=== PATIENT | male | born 2000 | race African-American/Black ===

== ENCOUNTER 2023-08-26 20:05 | Emergency (ER) | payer OTHER ==
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
[2023-08-26 20:36] VITALS: BP 148/82; O2SAT 97
[2023-08-26] MEDS: IBUPROFEN 800 MG TABLET PO STA (20:38)
--- NOTE | 2023-08-26 21:22 | XRAY Report ---
PROCEDURE: Wrist 3+V RT INDICATIONS: Wrist injury 4 views pls TECHNIQUE: 3 views of the wrist were acquired. COMPARISON: None. FINDINGS: Bones: No acute displaced fracture or dislocation. No high-grade degenerative changes Soft tissues: No suspicious calcifications IMPRESSION: No acute radiographic abnormality. If there is high concern for occult injury, consider repeat radiog sanjuana or cross-sectional imaging. Reviewed by: Alberto Ngo MD on 08/26/2023 9:21 PM PDT Approved by: Alberto Ngo MD on 08/26/2023 9:21 PM PDT Station ID: [id number]
--- NOTE | 2023-08-26 21:24 | CT Report ---
PROCEDURE: Cervical Spine WO INDICATIONS: Neck injury TECHNIQUE: Noncontrast 3 mm thick sections acquired from the skull base to the T4 level. Sagittal and coronal r eformats were then constructed. For radiation dose reduction, the following was used: automated exp osure control, adjustment of mA and/or kV according to patient size. COMPARISON: None. FINDINGS: Image quality: Diagnostic Bones: No high-grade degenerative changes. There is straightening of normal cervical lordosis. Verteb ral body heights are well-maintained. No traumatic subluxation. Soft tissues: No apical pneumothorax. No pathologic prevertebral soft tissue swelling. IMPRESSION: No acute fracture/subluxation of the cervical spine. If there is high concern for further derangement , consider MRI evaluation. Reviewed by: Alberto Ngo MD on 08/26/2023 9:22 PM PDT Approved by: Alberto Ngo MD on 08/26/2023 9:22 PM PDT Station ID: [id number]
== END 2023-08-26 21:49 | disposition home or self-care (01) ==
LOC: ED 20:05
DX: S19.9XXA Unspecified injury of neck, initial encounter (principal); S60.211A Contusion of right wrist, initial encounter; V43.52XA Car driver injured in collision with other type car in traffic accident, initial encounter; Y93.89 Activity, other specified; Y92.410 Unspecified street and highway as the place of occurrence of the external cause; F17.200 Nicotine dependence, unspecified, uncomplicated
CPT/HCPCS: 72125; 73110; 99284; A9270

== ENCOUNTER 2023-10-01 09:27 | Outpatient (CLI) | payer OTHER ==
--- NOTE | 2023-10-01 20:28 | XRAY Report ---
PROCEDURE: Wrist 3+V RT INDICATIONS: PAIN IN RIGHT WRIST TECHNIQUE: 3 views of the wrist were acquired. COMPARISON: 08/26/2023 FINDINGS: Bones: No fractures or dislocations. No suspicious bony lesions. Soft tissues: No suspicious soft tissue calcifications or masses. IMPRESSION: No acute bony abnormality. Reviewed by: Ranjit Jiang MD on 10/01/2023 8:27 PM PDT Approved by: Ranjit Jiang MD on 10/01/2023 8:27 PM PDT Station ID: [id number]
== END 2023-10-01 09:28 | disposition home or self-care (01) ==
LOC: DI 09:27
PROVIDERS: ATTEND Orthopaedic Surgery
DX: M25.531 Pain in right wrist (principal)